=== PATIENT | female | born 1995 | race Caucasian/White ===

== ENCOUNTER 2016-12-07 14:56 | Emergency (ER) | payer BC ==
[~2016-12-07] VITALS: Ht 171.5 cm; Wt 59.2 kg
[~2016-12-07 14:56] MED LIST: CALC500C3 PO; MYCO500T4 PO; PRED-301 PO
[2016-12-07 14:59] VITALS: TEMP 37; Ht 171.5 cm; Wt 59.2 kg
[2016-12-07] MEDS ORDERED: LIDOCAINE/EPINEPHRINE 1% 20 ML VIAL INFIL ONE (15:15)
[2016-12-07] MEDS ORDERED: HYDR200T5 PO (15:26)
--- NOTE | 2016-12-07 15:54 | DIAGNOSTIC IMAGING REPORT ---
RIGHT FOOT MIN 3 VIEWS ROUTINE HISTORY: 21 years-old Female laceration lateral foot, eval glass FB Right COMPARISON: None available TECHNIQUE: 3 views of the right foot FINDINGS: No acute fracture, dislocation, or significant degenerative changes. No radio-opaque foreign body. IMPRESSION: No acute bony abnormality. No radio-opaque foreign body The above report was generated using voice recognition software. It may contain grammatical, syntax or spelling errors. Electronically signed by: Porfirio Caballero M.D. 12/07/2016 3:52 PM Dictated Date/Time: 12/07/2016 3:48 PM
--- NOTE | 2016-12-07 15:55 | EMERGENCY ROOM VISIT NOTE ---
ED Visit Note First contact with patient: 15:03 CHIEF COMPLAINT: Foot laceration HISTORY OF PRESENT ILLNESS: This 21-year-old female patient presents to the emergency department right foot this morning at 6 AM. She states she dropped a drinking glass on the floor, it shattered and a piece of glass cut her right foot. She states she covered with a Band-Aid and went back to sleep, however when she got up later she noticed pain and some swelling in the area and is worried about a piece of glass in the foot. The bleeding has stopped. Denies weakness or numbness of the foot or toes, and has been able to ambulate. The patient rates the pain as aching and 2/10. The patient denies any other injuries. The patient's Tetanus shot is up to date. REVIEW OF SYSTEMS: A 6 system review of systems was completed with positives and pertinent negatives listed in the HPI. ALLERGIES: No known allergies MEDICATIONS: Reviewed in chart PMH: Lupus SOCIAL HISTORY: [employer] student. Denies tobacco, alcohol, recreational drug use. PHYSICAL EXAM: Vital Signs: Reviewed Nurse's notes, vital signs stable. GENERAL : Pleasant and cooperative, in no acute distress, well-developed, well- nourished. SKIN: There is a 0.5 cm long laceration on the dorsolateral aspect of the right foot. The edges gape apart with traction. There is no foreign material noted in the wound and it looks clean. There is no active bleeding. No deep structures such as tendons, bones, or significant blood vessels are seen in the base of the wound. Normal strength and movement of the fingers and wrist. Capillary refill less than 2 seconds. Normal sensation to light and sharp touch. EMERGENCY DEPARTMENT COURSE: I examined the patient. An x-ray of the right foot was performed, reviewed by myself and radiology, which reveals no evidence of retained foreign body. Verbal consent was obtained to perform the procedure. Using sterile technique the wound was cleansed with Betadine. The area was sterilely draped. 2 ml of 1% buffered lidocaine with epinephrine was used to anesthetize the laceration on the foot. Once the patient was anesthetized, the wound was copiously irrigated under pressure with sterile saline. The wound was carefully explored and no foreign body was noted, the wound was as described above. The laceration was repaired using Steri-Strips with the wound edges being well approximated. The patient tolerated the procedure well. Hemostasis was achieved. The patient was discharged home in good condition and ambulatory. Current/Historical Medications Scheduled Hydroxychloroquine Sulfate (Plaquenil), 200 MG PO BID Mycophenolate Mofetil (Cellcept), 1,000 MG PO BID Prednisone (Prednisone), 5 MG PO DAILY Allergies Coded Allergies: No Known Allergies (Unverified , 01/29/16) Vital Signs Date Time Temp Pulse Resp B/P (MAP) Pulse Ox O2 Delivery O2 Flow Rate FiO2 12/07/16 14:59 37.0 85 18 106/72 97 Room Air Departure Information Impression Primary Impression: Laceration of right foot excluding toes without complication Dispostion Home / Self-Care Condition GOOD Referrals Nelson Narayan M.D. (PCP) Patient Instructions ED Laceration Foot, [facility] Additional Instructions You were evaluated in the emergency department today for foot laceration. No evidence of foreign body was found on x-ray or examination of your wound. Keep the wound clean and dry. It is okay to shower and let water run over the wound, but do not immerse the foot in water until the wound is fully healed. You may apply ice and elevate the foot to help reduce swelling and pain. Ibuprofen 600 mg and Tylenol 1000 mg every 8 hour as needed for pain. Monitor closely for any signs of infection (increasing pain, redness, swelling, drainage, streaking up the foot, or fevers/chills). You should be evaluated immediately for any signs of infection. Keep covered when in sun until sutures removed then SPF 50 or higher for one year. Vitamin E oil if desired two weeks after suture removal for reduction of scar. School Instructions Return To School: 1 day Additional School Instructions: Ana Snowden was evaluated in the emergency department today on 12/07/2016. Problem Qualifiers Primary Impression: Laceration of right foot excluding toes without complication Encounter type: initial encounter Qualified Codes: S91.311A - Laceration without foreign body, right foot, initial encounter
[2016-12-07 16:33] VITALS: BP 108/73; PULSE 80; O2SAT 99
== END 2016-12-07 16:40 | disposition home or self-care (01) ==
LOC: C.EDB 14:57 → C.EDD 16:40
DX: S91.311A Laceration without foreign body, right foot, initial encounter (principal); W25.XXXA Contact with sharp glass, initial encounter

== ENCOUNTER 2018-08-14 22:10 | Inpatient (IN) ==
[2018-08-14] MEDS ORDERED: SODIUM CHLORIDE 0.9% 1000ML 2,000 ML IV ONE (22:52)
[2018-08-14] MEDS ORDERED: ACETAMINOPHEN 1,000 MG/100 ML VIAL IV STA (22:52)
[2018-08-14] MEDS ORDERED: KETOROLAC TROMETHAMINE 15 MG/ML VIAL IV STA (22:52)
[2018-08-15 00:19] LABS: Appearance Urine Clear (Clear); Color Urine Orange
[2018-08-15 00:22] LABS: Specific Gravity Urine > 1.060 (1.000-1.060)
[2018-08-15 00:23] LABS: Protein Urine Negative (Negative)
[2018-08-15 00:29] LABS: RBC Urine 0-4 /hpf (0-4)
[2018-08-15 00:30] LABS: Bacteria Urine 1+ (Negative); WBC Urine >30 /hpf (0-5)
[2018-08-15 00:34] LABS: Albumin Level 3.2 gm/dl (3.4-5.0); BUN Creatinine Ratio 14.9 (10-20); Calcium 8.2 mg/dl (8.5-10.1); Creatinine Clr Calc Pharmacy 96.1 ml/min; Est GFR (African American) 111.1; Est GFR (Non-African American) 95.9; Magnesium 1.7 mg/dl (1.8-2.4)
[2018-08-15 00:40] LABS: Albumin Globulin Ratio 0.9 (0.9-2); Bilirubin,Total 0.6 mg/dl (0.2-1); Globulin 3.7 gm/dl (2.5-4.0); Phosphorus 3.1 mg/dl (2.5-4.9); Total Protein 6.9 gm/dl (6.4-8.2)
[2018-08-15 01:02] LABS: Procalcitonin 0.46 ng/ml (0-0.5)
[2018-08-15 01:10] LABS: Lyme Ab IgG w/WB Rflx Negative (Negative); Lyme Ab IgM w/WB Rflx Negative (Negative)
--- NOTE | 2018-08-15 01:59 | Emergency Department Note ---
Entered by Rick Wallis acting as a scribe for Philipp Spangler MD History of Present Illness General Chief complaint: Flank Pain Stated complaint: SHAKING,SIDE PAIN,NECK PAIN,HEADACHE Time Seen by Provider: 08/14/18 22:29 Source: patient History of Present Illness Onset (ago): day(s) 4 Location: abdomen (flank pain) Radiation: other (rest of body) Pain Consistency: + other (worsening) Maximum Pain Intensity: 10 Associated symptoms: + denies other symptoms (vaginal lesions, vaginal itching, and vaginal discharge), + cough, + fever/chills, + headaches, + nausea/vomiting (positive nausea, negative vomiting) and + other (congestion) The patient is a 23 year old F who presents to the Emergency Room with complaints of worsening flank pain starting 4 days ago. The patient states that she was here at the ED earlier today for her flank pain and had testing done. She notes that the testing reveled that she has a potential infection. She adds that her pain radiates to the rest of her body. She states that 1 week ago she had a UTI. She adds that she was put on Bactrim for her UTI. She notes that when she was on the Bactrim, she started to experience a fever. She states that she is currently experiencing a fever, chills, headache, congestion, coughing, and nausea. She denies experiencing vomiting, vaginal lesions, vaginal itching, and vaginal discharge. She notes that she has a history of lupus and is immunosuppressed. She adds that she saw her talent acquisition operations manager recently. She states that there is no concern for an STD. She adds that she has a copper IUD in place. She notes that she did not use alcohol today but adds that she drank a lot this week and last week. She denies any drug use. Home Medications Home Medications Medication Instructions Recorded Confirmed Type hydroxychloroquine [Plaquenil] 200 mg PO DAILY #0 tab 12/07/16 08/14/18 History calcium carbonate [Calcium 500] 500 mg PO DAILY 01/27/18 08/14/18 History multivitamin with minerals 2 tab PO BID 04/28/18 08/14/18 History [Hair,Skin and Nails] mycophenolate mofetil [CellCept] 500 mg PO BID 04/28/18 08/14/18 History levofloxacin [Levaquin] 500 mg PO DAILY 7 Days #7 tab 08/14/18 08/14/18 Rx phenazopyridine [Pyridium] 200 mg PO DAILY PRN 08/14/18 08/14/18 History sulfamethoxazole-trimethoprim 1 tab PO BID 08/14/18 08/14/18 History [Bactrim DS] Allergies Allergy/AdvReac Type Severity Reaction Status Date / Time No Known Allergies Allergy Verified 08/14/18 23:19 Past Med/Surg History Medical History History of meningitis (Chronic) Lupus (Chronic) Surgical History No significant past surgical history Family History Other No pertinent family history Social History Preferred Language: Korean Communication Ability: Effective Keg Raiser Required: No Beliefs That Will Affect Care: None Current Living Situation: Family current occupational status: student Other Information That Helps Us Care for You: No Feels Safe at Home: Yes Safety Concerns: Feels Safe At This Time Smoking Status: Never smoker Hx Alcohol Use: Yes Alcohol type: hard liquor Hx Substance Use: No Review of Systems See HPI for pertinent positives & negatives. and A total of 10 systems reviewed and were otherwise negative Physical Exam Vital Signs Vital Signs - 24 hr 08/14/18 22:21 08/15/18 01:32 08/15/18 04:01 Temperature 37.7 C H Temperature Source Oral Sepsis Recent Fever Within 48 Hours Yes Sepsis New/Unexplained Change in Mental Status No Sepsis Action Taken by Nursing No Action Required Pulse Rate 105 H Pulse Rate [Finger] 102 H 98 H Respiratory Rate 16 18 18 Respiratory Effort / Characteristics Non-Labored Spontaneous Respiratory Depth Normal Respiratory Pattern Regular Blood Pressure 81/52 L Blood Pressure [Right Arm] 88/38 L 91/51 L Blood Pressure Mean 61 Blood Pressure Mean [Right Arm] 54 64 Pulse Oximetry 94 97 98 Oxygen Delivery Method Room Air Room Air Room Air 08/15/18 04:23 Temperature 37.0 C Temperature Source Oral Sepsis Recent Fever Within 48 Hours Sepsis New/Unexplained Change in Mental Status Sepsis Action Taken by Nursing Pulse Rate Pulse Rate [Finger] 100 H Respiratory Rate 16 Respiratory Effort / Characteristics Non-Labored Respiratory Depth Normal Respiratory Pattern Regular Blood Pressure Blood Pressure [Right Arm] 100/42 L Blood Pressure Mean Blood Pressure Mean [Right Arm] 61 Pulse Oximetry 96 Oxygen Delivery Method Room Air GENERAL: Awake, alert, fatigued-appearing, uncomfortable HENT: Normocephalic, atraumatic. Oropharynx with dry mucous membranes and otherwise unremarkable. EYES: Normal conjunctiva. Sclera non-icteric. NECK: Supple. No nuchal rigidity. FROM. No JVD. RESPIRATORY: CTA bilaterally. CARDIAC: Tachycardic rate, regular rhythm. Extremities warm and well perfused. Pulses equal. ABDOMEN: Soft, non-distended. Mild suprapubic discomfort without discrete tenderness. No rebound or guarding. No masses. RECTAL: Deferred. MUSCULOSKELETAL: Chest examination reveals no tenderness. The back is symmetrical on inspection without obvious abnormality. There is no CVA tenderness to palpation. No joint edema. LOWER EXTREMITIES: Calves are equal size bilaterally and non-tender. No edema. No discoloration. NEURO: Normal sensorium. No sensory or motor deficits noted. SKIN: No rash or jaundice noted. Course 2235: The patient was evaluated in room C2. A complete history and physical exam was performed. 0108: I re-checked the patient and updated her on her test results. 0135: I reviewed the patient's case with Dr. Claros [facility]. He will evaluate the patient for further management. Consultations Consultation #1: I reviewed the patient's case with [facility]. He will evaluate the patient for further management. Time: 01:35 Administered Medications Discontinued Medications Acetaminophen (Ofirmev) 1,000 mg in 100 mls @ 400 mls/hr IV NOW STA Stop: 08/14/18 23:06 Last Infusion: 08/15/18 02:26 Dose: 0 mls/hr Documented by: [id number] Admin: 08/15/18 00:17 Dose: 400 mls/hr Documented by: [id number] Sodium Chloride (Nss 1000ml) 2,000 mls @ 999 mls/hr IV .Q2H1M ONE Stop: 08/15/18 00:52 Last Infusion: 08/15/18 03:50 Dose: 0 mls/hr Documented by: [id number] Admin: 08/15/18 00:17 Dose: 999 mls/hr Documented by: [id number] Ketorolac Tromethamine (Toradol) 15 mg IV NOW STA Stop: 08/14/18 22:53 Last Admin: 08/15/18 00:16 Dose: 15 mg Documented by: [id number] Medical Decision Making Differential Diagnosis Differential diagnosis includes: viral syndrome, otitis, pharyngitis, pneumonia, influenza, meningitis, urinary tract infection, sepsis, bacteremia, as well as others were entertained. Medical Records Attestation: I reviewed the patient's medical records. Home Medications Current Medication List: was personally reviewed by me Laboratory Data Attestation: I reviewed the patient's lab results. Result diagrams: 08/15/18 00:00 Lab Results 08/14/18 08/15/18 08/15/18 Range/Units 23:42 00:00 00:00 Sodium 136 (136-145) mmol/L Potassium 4.0 (3.5-5.1) mmol/L Chloride 107 (98-107) mmol/L Carbon Dioxide 25 (21-32) mmol/L Anion Gap 4.0 (3-11) BUN 13 D (7-18) mg/dl Creatinine 0.86 (0.6-1.2) mg/dl Est Cr Clr Drug Dosing 96.1 ml/min Est GFR ( Amer) 111.1 Est GFR (Non-Af Amer) 95.9 BUN/Creatinine Ratio 14.9 (10-20) Glucose 95 (70-99) mg/dl Lactate 1.3 (0.4-2.0) mmol/L Calcium 8.2 L (8.5-10.1) mg/dl Phosphorus 3.1 (2.5-4.9) mg/dl Magnesium 1.7 L (1.8-2.4) mg/dl Total Bilirubin 0.6 (0.2-1) mg/dl AST 23 (15-37) U/L ALT 18 (12-78) U/L Alkaline Phosphatase 70 (45-117) U/L Total Protein 6.9 (6.4-8.2) gm/dl Albumin 3.2 L (3.4-5.0) gm/dl Globulin 3.7 (2.5-4.0) gm/dl Albumin/Globulin Ratio 0.9 (0.9-2) Lipase 104 (73-393) U/L Procalcitonin (0-0.5) ng/ml Urine Color [place] Urine Appearance Clear (Clear) Urine pH (4.5-7.5) Ur Specific [place] > 1.060 H (1.000-1.060) Urine Protein Negative (Negative) Urine Glucose (UA) (Negative) Urine Ketones (Negative) Urine Blood (Negative) Urine Nitrite (Negative) Urine Bilirubin (Negative) Urine Urobilinogen (Negative) Ur Leukocyte Esterase (Negative) Urine RBC 0-4 (0-4) /hpf Urine WBC >30 H (0-5) /hpf Ur Epithelial Cells 5-10 H (0-5) /lpf Urine Bacteria 1+ H (Negative) Lyme Disease IgG Ab (Negative) Lyme Disease IgM Ab (Negative) 08/15/18 Range/Units 00:00 Sodium (136-145) mmol/L Potassium (3.5-5.1) mmol/L Chloride (98-107) mmol/L Carbon Dioxide (21-32) mmol/L Anion Gap (3-11) BUN (7-18) mg/dl Creatinine (0.6-1.2) mg/dl Est Cr Clr Drug Dosing ml/min Est GFR ( Amer) Est GFR (Non-Af Amer) BUN/Creatinine Ratio (10-20) Glucose (70-99) mg/dl Lactate (0.4-2.0) mmol/L Calcium (8.5-10.1) mg/dl Phosphorus (2.5-4.9) mg/dl Magnesium (1.8-2.4) mg/dl Total Bilirubin (0.2-1) mg/dl AST (15-37) U/L ALT (12-78) U/L Alkaline Phosphatase (45-117) U/L Total Protein (6.4-8.2) gm/dl Albumin (3.4-5.0) gm/dl Globulin (2.5-4.0) gm/dl Albumin/Globulin Ratio (0.9-2) Lipase (73-393) U/L Procalcitonin 0.46 (0-0.5) ng/ml Urine Color Urine Appearance (Clear) Urine pH (4.5-7.5) Ur Specific [place] (1.000-1.060) Urine Protein (Negative) Urine Glucose (UA) (Negative) Urine Ketones (Negative) Urine Blood (Negative) Urine Nitrite (Negative) Urine Bilirubin (Negative) Urine Urobilinogen (Negative) Ur Leukocyte Esterase (Negative) Urine RBC (0-4) /hpf Urine WBC (0-5) /hpf Ur Epithelial Cells (0-5) /lpf Urine Bacteria (Negative) Lyme Disease IgG Ab Negative (Negative) Lyme Disease IgM Ab Negative (Negative) ECG Data Attestation: I personally reviewed and interpreted this ECG as follows: Indication: abdominal pain Rate (beats per minute): 92 Rhythm: normal sinus Findings: + other (normal axis); no acute ischemic change Blood Pressure Blood Pressure Findings: Low blood pressure Blood Pressure Disposition: further management by hospitalist NATALEE Banks The patient is a pleasant 23-year-old woman with a past medical history of lupus on CellCept and Plaquenil who presents emergency department after being discharged 4 hours prior after being diagnosed with UTI/pyelonephritis although with unremarkable CT of the abdomen pelvis per hpi. The patient was seen in the emergency department earlier today and had a WBC of 11 and was treated with c eftriaxone and ciprofloxacin. He was then provided with a prescription for Levaquin. On arrival patient is uncomfortable but no acute distress, temperature 37.7, heart rate in the 100s and blood pressure 80s/30s. The patient appears clinically dry. She has mild suprapubic discomfort without disc rete tenderness. Chemistry unremarkable without acidosis. LFTs unremarkable. Lactate and procalcitonin within normal limits making sepsis less likely. 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 Additionally patient refused EKG because she reports that it gives her chest pain. Additionally she refused to be on the monitor. Given the patient is immunosuppressed with persistent symptoms that caused to return to the emergency department in less than 5 hours it is reasonable to admit the patient for further management. I did discuss this with the patient and her mother at the bedside and while ultimately agreeable, the patient's mother did express that she wanted to know exactly what "testing would be done if she were to come into the hospital" because she feels that if she "only is going to be observed" she would prefer to go home with the patient to see her doctors in [place] hometown. I did explain to the patient and her mother that is difficult to foresee exactly what type of testing will be performed and the more important part of her admission would be to observe her symptoms and continue to provide supportive care with IV fluid hydration and antibiotics. Case was discussed with Dr. Claros, [facility] hospitalist, who will evaluate the patient for admission Impression & Plan Pyelonephritis Discharge Plan Visit Data Chief Complaint: Flank Pain Stated Complaint: SHAKING,SIDE PAIN,NECK PAIN,HEADACHE ED Provider: Philipp Spangler Discharge Problem: Pyelonephritis Patient Disposition: Admitted As Inpatient Discharge Instructions Interventions: ED Discharge Assessment Last Done: 08/15/18 05:02 The scribe's documentation has been prepared under my direction and personally reviewed by me in its entirety. I confirm that the note above accurately reflects all work, treatment, procedures, and medical decision making performed by me.
[2018-08-15] MEDS ORDERED: ACETAMINOPHEN 325 MG TAB PO PRN (05:23)
[2018-08-15] MEDS ORDERED: ONDANSETRON INJ 2 MG/ML 2 ML VIAL IV PRN (05:23)
[2018-08-15] MEDS: SODIUM CHLORIDE 0.9% 1000ML 1,000 ML IV SCH ×3 (05:52→21:47)
[2018-08-15] MEDS ORDERED: MAGNESIUM SULFATE / D5W 1 GM/100 ML BAG IV ONE (06:46)
[2018-08-15] MEDS ORDERED: cefTRIAXone SODIUM 1,000 MG in DEXTROSE 5% 50 ML IV SCH (07:00)
[2018-08-15] MEDS: CALCIUM CARBONATE 1250MG TAB PO SCH ×2 (07:30→08:55)
[2018-08-15] MEDS: CEROVITE ADV FORMULA TAB PO SCH ×3 (07:30→20:12)
--- NOTE | 2018-08-15 08:14 | History and Physical Report ---
DATE OF ADMISSION: 08/15/2018 CHIEF COMPLAINT: Fever, not feeling well, flank pain. HISTORY OF PRESENT ILLNESS: This is a 23-year-old female with past medical history significant for Raynaud's syndrome, SLE, who recently was diagnosed with UTI at [facility] and treated with 3 days of Bactrim. Then she did have joint pain, so she spoke with her prover who prescribed a Medrol Dosepak for 6 days, which she completed, but again she also had cold symptoms when she had UTI and the cold symptoms never went away and she went to [facility] yesterday morning and was referred to ED. [facility] performed strep swab and flu swab and they were both negative. She complained of right flank pain in the ER yesterday afternoon, white count was 11. All chemistries were fine. Lactic acid was 1.5. UA was negative. She was given Rocephin and Levaquin. Chest x-ray was unremarkable and CT of abdomen and pelvis with contrast was also unremarkable except for some constipation, so she was discharged on p.o. Levaquin as per patient wishes as she was graduating from [employer].. After graduation, around 8 o'clock, she started not feeling well and complained of flank pain and came back to the ER. She has lupus and is on immunosupressant medications. Again the chemistries were fine and lactic acid was 1.3. Urinalysis negative,.Blood pressure was on the lower side, received IV fluids, and received Tylenol and also Toradol, and we are called for admission for observation in the hospital. The patient says now she is feeling better. She has history of meningococcal bacteremia in the past. She complains of mild headache and mild neck pain but no neck stiffness. No chest pain, no shortness of breath, currently no cough, no nausea, no abdominal pain. Normal bowel and bladder movements. No burning micturition, no hematuria. Her flank pain is improved. No swelling in the legs. No rash seen. Currently resting comfortably. She is feeling better. Mother in the room and she is asking to check for SLE studies, likely ESR, CRP, C3, C4 levels and she is questioning holding the CellCept while she is in the hospital. ALLERGIES: No known drug allergies. PAST MEDICAL HISTORY: As mentioned above. PAST SURGICAL HISTORY: None. MEDICATIONS: The patient is on multivitamins with minerals 1 tablet daily, Plaquenil 400 mg p.o. b.i.d., CellCept 1000 mg p.o. b.i.d. FAMILY HISTORY: Significant for mother has ITP and stroke. Paternal grandmother had MS . SOCIAL HISTORY: Single. No smoking; alcohol rarely. No drug use. REVIEW OF SYMPTOMS: As per HPI. Rest of review of systems is negative. PHYSICAL EXAMINATION: GENERAL: The patient is of moderate build, not in acute distress. VITAL SIGNS: Temperature 37.7, pulse 102, respiratory rate 18, blood pressure 88/38, oxygen 97% on room air. HEENT: Pupils equal, round, reactive to light. Atraumatic. NECK: No neck masses. Supple. CARDIOVASCULAR: S1, S2 heard. Regular rate and rhythm, no murmur, no gallop. RESPIRATORY SYSTEM: Normal effort. No accessory muscle use. No wheezing, no crackles. ABDOMEN: Soft, bowel sounds present. Nontender. No distention. CENTRAL NERVOUS SYSTEM: Nonfocal. EXTREMITIES: No edema, no erythema. LABORATORIES: Sodium 136, potassium 4, chloride 107, bicarbonate 25, BUN 13, creatinine 0.8, serum glucose 95. Lactate 1.6, calcium 8.2, phosphorus 3.1, magnesium 1.7, total bilirubin 0.6, AST 23, ALT 18, alkaline phosphatase 70, lipase 104. Procalcitonin 0.4. Urinalysis and lyme screen negative. ASSESSMENT AND PLAN: This is a 23-year-old female who was recently treated for urinary tract infection and connective tissue disease flare up, treated with Medrol Dosepak, presents with again flank pain and fever, presented to the ER in afternoon and discharged after given Rocephin and Levaquin as she had a graduation, and after 4 or 5 hours later after finishing the graduation, she came back again with not feeling well and has temp spike, blood pressure on the lower side, but lactic acid is normal, not acidotic. We will observe in the hospital with IV Rocephin, IV fluids, repeat labs, check for ESR and CRP and also consider discussing with rheumatology for any connective tissue disease flare. We will also monitor for any adrenal insufficiency as the patient recently had steroids. Will follow the cultures jesus alberto earlier. 2., history of systemic lupus erythematosus and Raynaud's syndrome. Continue her Plaquenil and CellCept unless okay to stop by prover. 3 Deep venous thrombosis prophylaxis, SCDs. DISPOSITION: Close monitoring in the Med/Surg tele. Level 1 full code. MTDD
[2018-08-15 08:42] LABS: Hematocrit (blood only) 33.8 % (37-47); Mean Corpuscular Hgb Conc 32.5 g/dL (32-36); Mean Corpuscular Volume 89.2 fL (80-100); Mean Platelet Volume 9.4 fL (7.4-10.4); Platelet Count 244 K/uL (130-400); RDW Coefficient of Variation 13.5 % (11.5-14.5); RDW Standard Deviation 44.6 fL (36.4-46.3); Red Blood Count 3.79 M/uL (4.2-5.4); White Blood Count 12.28 K/uL (4.8-10.8)
[2018-08-15 08:43] LABS: Basophils # (auto) 0.01 K/uL (0-0.2); Basophils % (auto) 0.1 %; Eosinophils # (auto) 0.06 K/uL (0-0.5); Eosinophils % (auto) 0.5 %; Hematocrit (blood only) 34.4 % (37-47); Hemoglobin 11.1 g/dL (12.0-16.0); Immature Granulocytes # (auto) 0.04 K/uL (0.00-0.02); Immature Granulocytes % (auto) 0.3 %; Lymphocytes # (auto) 0.51 K/uL (1.2-3.4); Lymphocytes % (auto) 4.1 %; Mean Corpuscular Hgb Conc 32.3 g/dL (32-36); Mean Corpuscular Volume 89.4 fL (80-100); Mean Platelet Volume 9.4 fL (7.4-10.4); Monocytes # (auto) 0.31 K/uL (0.11-0.59); Monocytes % (auto) 2.5 %; Neutrophils # (auto) 11.53 K/uL (1.4-6.5); Neutrophils % (auto) 92.5 %; Platelet Count 248 K/uL (130-400); RDW Coefficient of Variation 13.6 % (11.5-14.5); RDW Standard Deviation 44.4 fL (36.4-46.3); Red Blood Count 3.85 M/uL (4.2-5.4); White Blood Count 12.46 K/uL (4.8-10.8)
[2018-08-15] MEDS ORDERED: VANCOMYCIN CONSULT ACTIVE PRN (08:55)
[2018-08-15] MEDS ORDERED: MYCOPHENOLATE MOFETIL 250 MG CAP PO SCH (09:00)
[2018-08-15] MEDS ORDERED: HYDROXYCHLOROQUINE SULFATE 200 MG TAB PO SCH (09:00)
[2018-08-15 09:09] LABS: Basophils # (auto) 0.01 K/uL (0-0.2); Basophils % (auto) 0.1 %; Eosinophils # (auto) 0.05 K/uL (0-0.5); Eosinophils % (auto) 0.4 %; Immature Granulocytes # (auto) 0.03 K/uL (0.00-0.02); Immature Granulocytes % (auto) 0.2 %; Lymphocytes # (auto) 0.57 K/uL (1.2-3.4); Lymphocytes % (auto) 4.6 %; Monocytes # (auto) 0.25 K/uL (0.11-0.59); Neutrophils # (auto) 11.37 K/uL (1.4-6.5); Neutrophils % (auto) 92.7 %
--- NOTE | 2018-08-15 09:15 | Hospitalist Progress Note ---
Date of Service August 15, 2018 Assessment & Plan (1) Fever: Fever: urinary tract infection, possible meningitis, rule out bacteremia -max temperature to date as 39.9 celsius which is 103.8 F while on ceftriaxone in the hospital on 08/15/18 -unclear at this time the source of fever -patient had recently been treated as outpatient for urinary tract infection: previous use of bactrim for 3 days but then went to ER for right flank pain -08/14/18 CT abdomen/pelvis does not show acute pyelonephritis, Bilateral renal calculi measure up to 5 mm but no ureteral calculi and no hydronephrosis or hydroureter, and patient was discharged from ED with Levaquin but returned the same day for persistent symptoms and fever and also reports associated neck pain and photophobia -patient is immunosuppressed by hydroxychloroquine (Plaquenil) and mycophenolate (Cellcept) because of Systemic lupus erythematosus and Raynaud's syndrome - will hold immunosuppressants for now -patient also had history of suspected meningitis infection in the past but patient never had lumbar puncture before -patient have agreed to lumbar puncture by ICU Dr. Schmidt on 08/15/18 and then will be on increased ceftriaxone 2 gram IV q 12 hours , ampicillin 2 gram q4 hours, and vancomycin -place on droplet precautions in case of meningitis -will follow blood cultures, and urine cultures -recently sexually active with male partner and condom broke: will send HIV test as requested by the patient, will send EBV, and Neisseria and Gonorrhea test, and test -will ask for infectious disease consultation Bilateral renal calculi measure up to 5 mm but no ureteral calculi and no hydronephrosis or hydroureter -observation Systemic lupus erythematosus and Raynaud's syndrome -hold hydroxychloroquine (Plaquenil) and mycophenolate (Cellcept) for now - check for SLE studies: ESR, CRP, C3, C4 levels Deep venous thrombosis prophylaxis, SCDs Full Code Mother: [phone] Subjective Patient at bedside with her mother. Patient noted to have high fevers as high as 39.9 celsius. Patient's mother at the bedside. Patient permitted medical questions including about sexual history while mother in the room. Patient reports that she was sexually active recently and condom broke. Patient reports that the sexual partner was sick recently. Patient requests HIV testing. She denies unusual discharges from orifices. Patient reports that recent history of right flank pain, and more recently with photophobia and neck pain. Patient reports with recent college celebrations she have been sharing drinks with other people. Patient's mother corroborates history of suspected meningitis infection in the past but patient never had lumbar puncture before. Patient allows for lumbar puncture by ICU Dr. Schmidt no vomiting, no abdomen pain, no chest pain, no shortness of breath. denies r ashes. general malaise. patient is anxious because of illness Physical Exam Constitutional: + ill appearing Eyes: PERRL, conjunctivae normal, anicteric sclerae EOM intact bilaterally Neck: trachea midline, no thyromegaly (no neck rigidity) normal visual inspection Respiratory: normal respiratory effort, lungs clear to auscultation Cardiovascular: Rate/Rhythm: + tachycardic Gastrointestinal (Abdomen): normal bowel sounds, soft, nontender, no hepatosplenomegaly Musculoskeletal: no cyanosis or clubbing, extremities motor strength 5/5 Head/Neck/Chest: normocephalic and head atraumatic Neurologic: PERRL, EOMI, accommodation nl, no face palsy, no dysarthria CN 's II-XI intact bilaterally Psychiatric: A+Ox3, euthymic affect Results & Data Vital Signs (Past 12 Hours) Vital Signs Temp Pulse Pulse Resp BP BP BP 08/15/18 08:08 39.2 C H 114 H 21 97/59 L 08/15/18 05:42 37.5 C 102 H 18 101/65 08/15/18 04:23 37.0 C 100 H 16 100/42 L 08/15/18 04:01 98 H 18 91/51 L 08/15/18 01:32 102 H 18 88/38 L 08/14/18 22:21 37.7 C H 105 H 16 81/52 L Pulse Ox 08/15/18 08:08 91 08/15/18 05:42 99 08/15/18 04:23 96 08/15/18 04:01 98 08/15/18 01:32 97 08/14/18 22:21 94
[2018-08-15 09:17] LABS: Alanine Aminotransferase 15 U/L (12-78); Albumin Level 2.5 gm/dl (3.4-5.0); Aspartate Aminotransferase 19 U/L (15-37); BUN Creatinine Ratio 16.6 (10-20); Blood Urea Nitrogen 11 mg/dl (7-18); Calcium 7.7 mg/dl (8.5-10.1); Carbon Dioxide 22 mmol/L (21-32); Chloride 114 mmol/L (98-107); Creatinine Clr Calc Pharmacy 125.2 ml/min; Est GFR (African American) 145.3; Est GFR (Non-African American) 125.4; Glucose 124 mg/dl (70-99); Magnesium 1.9 mg/dl (1.8-2.4); Potassium 3.6 mmol/L (3.5-5.1); Sodium 141 mmol/L (136-145)
[2018-08-15 09:20] LABS: Alkaline Phosphatase 55 U/L (45-117); Bilirubin Direct < 0.1 mg/dl (0-0.2); Bilirubin,Total 0.2 mg/dl (0.2-1); Total Protein 5.9 gm/dl (6.4-8.2)
[2018-08-15] MEDS ORDERED: VANCOMYCIN HCL 1,500 MG in SODIUM CHLORIDE 0.9% 500 ML IV ONE (09:30)
[2018-08-15] MEDS ORDERED: cefTRIAXone SODIUM 1,000 MG in DEXTROSE 5% 50 ML IV ONE (09:30)
--- NOTE | 2018-08-15 10:01 | Pharmacy Report ---
Pharmacy Abx Initial Consult - Date of Service August 15, 2018 - Pharmacy Dosing Scope Date of Consult: 08/15/18 Consultation requested by: Dr. Patrick Pharmacy is consulted to initiate Vancomycin IV/PO dosing therapy, order appropriate labs and adjust drug dose/frequency. - Subjective The patient is a 23 year old F admitted on 08/15/18 03:15. - Objective Height: 5 ft 6 in Weight: 62.7 kg Vital Signs (Past 12hrs): Vital Signs Temp Pulse Pulse Resp BP BP BP 08/15/18 08:08 39.2 C H 114 H 21 97/59 L 08/15/18 05:42 37.5 C 102 H 18 101/65 08/15/18 04:23 37.0 C 100 H 16 100/42 L 08/15/18 04:01 98 H 18 91/51 L 08/15/18 01:32 102 H 18 88/38 L 08/14/18 22:21 37.7 C H 105 H 16 81/52 L Pulse Ox 08/15/18 08:08 91 08/15/18 05:42 99 08/15/18 04:23 96 08/15/18 04:01 98 08/15/18 01:32 97 08/14/18 22:21 94 Lab Results (24hrs): Laboratory Tests (24 Hours) 08/15/18 08/15/18 08/15/18 07:52 07:52 07:52 WBC 12.46 H Neut # (Auto) 11.53 H ESR 17 Creatinine 0.66 Est Cr Clr Drug Dosing 125.2 C-Reactive Protein 9.00 H Procalcitonin 08/15/18 08/15/18 08/15/18 07:52 00:00 00:00 WBC 12.28 H Neut # (Auto) 11.37 H ESR Creatinine 0.86 Est Cr Clr Drug Dosing 96.1 C-Reactive Protein Procalcitonin 0.46 - Risk Factors for Resistance * Immunocompromised (Takes CellCept and Plaquenil for Lupus and Raynaud's syndrome) * Antimicrobial use within the last 90 days [Bactrim x 3 days for UTI, Rocephin IV and Levaquin PO from [facility] ED] - Assessment & Plan Assessment 23 year old F presented to the ED with complaints of flank pain, fever, chills, cough, and congestion. The patient had previously visited [facility] last week where she was diagnosed with a UTI and given a rx for Bactrim. Strep and Flu swab at [facility] were negative. After 3 days her pain persisted, she developed a fever and joint pain. She returned to [facility] who referred her to the ED. Labs and imaging were negative, pt requested to be discharged so she could attend her graduation. She was given a dose of Rocephin IV, and discharged with PO Levaquin - unclear if she took any doses before returning to the ED about 8 hours later with worsening symptoms. She has a history of bacterial meningitis about 3 years ago, and reports that she has been frequently sharing drinks/cups with friends recently. LP to be done today. Immunosuppressants are currently being held. Plan Vancomycin for treatment of meningitis Vancomycin IV * Estimated PK Parameters: Vd 0.7 L/kg, [place] 0.108 hr-1, t1/2 ~6 hr * Loading dose: 1500 mg (24 mg/kg) * Maintenance dose: 1000 mg IV (16 mg/kg) every 8 hours * Goal trough level : 15 to 20 mcg/mL * Trough/Random level ordered for 08/16/18 before 1000 dose. Ceftriaxone (not a consult) * 2g IV every 12 hrs appropriate for indication Ampicillin (not a consult) * 2g IV every 4 hrs appropriate for indication Pharmacy will continue to follow and will adjust dose/frequency as necessary. Thank you.
--- NOTE | 2018-08-15 10:10 | Critical Care Consultation ---
Date of Consultation August 15, 2018 Assessment & Plan (1) Fever: discussed risks josh benefits of LP with patient and parents. agreeable will prceed with LP History of Present Illness Reason for Consultation: lumbar puncture Attending Physician: Shaw Partick MD History of Present Illness 23 y/o female with SLE presented with fevers and headache. consulted to perform LP Allergies Allergy/AdvReac Type Severity Reaction Status Date / Time No Known Allergies Allergy Verified 08/14/18 23:19 Home Medications Home Medications Medication Instructions Recorded Confirmed Type hydroxychloroquine [Plaquenil] 200 mg PO DAILY #0 tab 12/07/16 08/14/18 History calcium carbonate [Calcium 500] 500 mg PO DAILY 01/27/18 08/14/18 History multivitamin with minerals 2 tab PO BID 04/28/18 08/14/18 History [Hair,Skin and Nails] mycophenolate mofetil [CellCept] 500 mg PO BID 04/28/18 08/14/18 History levofloxacin [Levaquin] 500 mg PO DAILY 7 Days #7 tab 08/14/18 08/14/18 Rx phenazopyridine [Pyridium] 200 mg PO DAILY PRN 08/14/18 08/14/18 History sulfamethoxazole-trimethoprim 1 tab PO BID 08/14/18 08/14/18 History [Bactrim DS] Patient History Medical History History of meningitis (Chronic) Lupus (Chronic) Surgical History No significant past surgical history Family History Other No pertinent family history Social History Preferred Language: Slovak Communication Ability: Effective Sorting Cows Worker Required: No Beliefs That Will Affect Care: None Current Living Situation: Family current occupational status: student Other Information That Helps Us Care for You: No Feels Safe at Home: Yes Safety Concerns: Feels Safe At This Time Smoking Status: Never smoker Hx Alcohol Use: Yes Alcohol type: hard liquor Hx Substance Use: No Results & Data Vital Signs (Past 12 Hours) Vital Signs Temp Pulse Pulse Resp BP BP BP 08/15/18 10:01 37.5 C 08/15/18 08:08 39.2 C H 114 H 21 97/59 L 08/15/18 05:42 37.5 C 102 H 18 101/65 08/15/18 04:23 37.0 C 100 H 16 100/42 L 08/15/18 04:01 98 H 18 91/51 L 08/15/18 01:32 102 H 18 88/38 L 08/14/18 22:21 37.7 C H 105 H 16 81/52 L Pulse Ox 08/15/18 10:01 08/15/18 08:08 91 08/15/18 05:42 99 08/15/18 04:23 96 08/15/18 04:01 98 08/15/18 01:32 97 08/14/18 22:21 94
--- NOTE | 2018-08-15 10:13 | Procedure Note ---
Procedure Note Date of Service August 15, 2018 Note Lumbar puncture after informed consent pt positioned on her R side in position sterile precautions area cleaned with Betadine anesthetized with 1% lidocaine using landmarks 20 gauge needle introduced. and clear spinal fluid obtained opening pressure 22 mmH20 slightly bloody fluid in tubes 3-4 after catheter moved slightly likely traumatic. will do cell count on tube 2 await fluid studies Coding
[2018-08-15] MEDS: AMPICILLIN 2,000 MG in SODIUM CHLOR 0.9% AD-VAN 100 ML IV SCH ×4 (10:40→21:47)
[2018-08-15 10:44] LABS: Total Protein CSF 97.4 mg/dl (15-45)
[2018-08-15 11:00] LABS: Appearance CSF Clear; CSF Count Tube # 2; CSF Xanthrochromic No xanthochromia; Color CSF Colorless; Red Blood Cell CSF (A) 110 /uL (0-); Red Blood Cell CSF (B) 100 /uL (0-); White Blood Cell CSF (B) 400 /uL (0-5)
[2018-08-15 11:01] LABS: White Blood Cell CSF (A) 366 /uL (0-5)
[2018-08-15 11:16] LABS: Mononuclear WBC CSF 8.5 %; Polynuclear WBC CSF 91.5 %
[2018-08-15 11:22] LABS: Pregnancy Test, Serum Negative (Negative)
[2018-08-15] MEDS ORDERED: ACETAMINOPHEN 1,000 MG/100 ML VIAL IV PRN (12:09)
[2018-08-15] MEDS: OXYCODONE HCL IR 5 MG TAB (IMMEDIATE RELEASE) PO PRN ×2 (12:52→21:46)
[2018-08-15] MEDS: ACYCLOVIR SOD IV SCH ×2 (12:53→20:38)
[2018-08-15] MEDS: DEXTROSE 5% IV SCH ×2 (12:53→20:38)
--- NOTE | 2018-08-15 15:10 | Infectious Disease Consult ---
Date of Consultation August 15, 2018 Assessment & Plan (1) Meningitis: 23-year-old female with lupus now with fever, headache, new urinary complaints with CSF consistent with acute meningitis. Differential includes usual bacterial causes, suspect more likely viral such as echovirus but also HSV possible. Also wonder whether her underlying lupus may be contributing. For now, patient will continue on current broad-spectrum antibiotics and antiviral therapy pending final culture results, PCR studies and serologies. Discussed at length with patient's father. Will follow. History of Present Illness Reason for Consultation: High fever, concern for meningitis Attending Physician: Shaw Patrick MD History of Present Illness 23-year-old female with history of lupus, episode of meningococcemia several years ago, who was in usual state of health until approximately a week ago when she developed symptoms of urinary tract infection for which she was seen at local walk-in center and given Bactrim for possible UTI. Was also complaining of worsening joint pains, and rheumatology prescribed a Medrol Dosepak. She developed continuing urinary symptoms with flank pain, along with fever, headache, mild stiff neck, was seen in the emergency room, given ceftriaxone and sent home on Levaquin but symptoms worsened, patient return to the emergency room and admitted. Because of headache, patient underwent lumbar puncture and was found to have significant pleocytosis with white cells in the 300s, predominantly polys. Protein was elevated, glucose relatively normal. No other obvious significant travel or exposure history. Allergies Allergy/AdvReac Type Severity Reaction Status Date / Time No Known Allergies Allergy Verified 08/14/18 23:19 Home Medications Home Medications Medication Instructions Recorded Confirmed Type hydroxychloroquine [Plaquenil] 200 mg PO DAILY #0 tab 12/07/16 08/14/18 History calcium carbonate [Calcium 500] 500 mg PO DAILY 01/27/18 08/14/18 History multivitamin with minerals 2 tab PO BID 04/28/18 08/14/18 History [Hair,Skin and Nails] mycophenolate mofetil [CellCept] 500 mg PO BID 04/28/18 08/14/18 History levofloxacin [Levaquin] 500 mg PO DAILY 7 Days #7 tab 08/14/18 08/14/18 Rx phenazopyridine [Pyridium] 200 mg PO DAILY PRN 08/14/18 08/14/18 History sulfamethoxazole-trimethoprim 1 tab PO BID 08/14/18 08/14/18 History [Bactrim DS] Patient History Medical History History of meningitis (Chronic) Lupus (Chronic) Surgical History No significant past surgical history Family History Other No pertinent family history Social History Preferred Language: Wolof Communication Ability: Effective Attendant Coin Operated Laundry Required: No Beliefs That Will Affect Care: None Current Living Situation: Family current occupational status: student Other Information That Helps Us Care for You: No Feels Safe at Home: Yes Safety Concerns: Feels Safe At This Time Smoking Status: Never smoker Hx Alcohol Use: Yes Alcohol type: hard liquor Hx Substance Use: No Review of Systems Review of Systems: All systems reviewed & are unremarkable except as noted in HPI & below Physical Exam Constitutional: WD/WN, vitals as above + ill appearing and comfortable Eyes: PERRL, conjunctivae normal, anicteric sclerae ENMT: external ear and nose normal, oropharynx normal Neck: trachea midline, no thyromegaly neck nontender Respiratory: normal respiratory effort, lungs clear to auscultation normal percussion; does not use accessory muscles Cardiovascular: Rate/Rhythm: regular rate and regular rhythm Heart Sounds: normal S1 and normal S2; no gallop, no murmur and no cardiac rub Vessels: normal peripheral pulses; no JVD Gastrointestinal (Abdomen): normal bowel sounds, soft, nontender, no hepatosplenomegaly Musculoskeletal: no cyanosis or clubbing, extremities motor strength 5/5 Spine: thoracic spine normal to inspection and lumbar spine normal to inspection; no cervical spinal tenderness Skin: no rashes, warm and dry normal turgor; no lesions Neurologic: patellar DTR's 2+ bilat, sensation intact no focal motor deficits Psychiatric: A+Ox3, euthymic affect Orientation: cooperative Lymphatic: no cervical or axillary lymphadenopathy no inguinal lymphadenopathy Results & Data Vital Signs (Past 12 Hours) Vital Signs Temp Pulse Pulse Resp BP BP Pulse Ox 08/15/18 12:53 36.7 C 103 H 16 92/55 L 97 08/15/18 10:01 37.5 C 08/15/18 08:08 39.2 C H 114 H 21 97/59 L 91 08/15/18 08:00 111 H 08/15/18 05:42 37.5 C 102 H 18 101/65 99 08/15/18 04:23 37.0 C 100 H 16 100/42 L 96 08/15/18 04:01 98 H 18 91/51 L 98 Laboratory Results Short CBC 08/15/18 08/15/18 Range/Units 07:52 07:52 WBC 12.28 H 12.46 H (4.8-10.8) K/uL Hgb 11.0 L 11.1 L (12.0-16.0) g/dL Hct 33.8 L 34.4 L (37-47) % Plt Count 244 248 (130-400) K/uL BMP 08/15/18 08/15/18 00:00 07:52 Sodium 136 141 Potassium 4.0 3.6 Chloride 107 114 H Carbon Dioxide 25 22 BUN 13 D 11 Creatinine 0.86 0.66 Glucose 95 124 H Calcium 8.2 L 7.7 L Liver Function 08/15/18 08/15/18 Range/Units 00:00 07:52 Total Bilirubin 0.6 0.2 (0.2-1) mg/dl Direct Bilirubin < 0.1 (0-0.2) mg/dl AST 23 19 (15-37) U/L ALT 18 15 (12-78) U/L Alkaline Phosphatase 70 55 (45-117) U/L Albumin 3.2 L 2.5 L (3.4-5.0) gm/dl Urine 08/14/18 Range/Units 23:42 Urine Color [place] Urine Appearance Clear (Clear) Urine pH (4.5-7.5) Ur Specific [place] > 1.060 H (1.000-1.060) Urine Protein Negative (Negative) Urine Glucose (UA) (Negative) Diagnostic Findings Microbiology 08/15/18 Unknown Cerebral Spinal Fluid Gram Stain - Final 08/15/18 Unknown Cerebral Spinal Fluid Cryptococcal Antigen - Final
[2018-08-15] MEDS: VANCOMYCIN HCL 1,000 MG in SODIUM CHLORIDE 0.9% 250 ML IV SCH (18:27)
[2018-08-15] MEDS ORDERED: Nursing to Pharmacy Communication ONE (19:00)
[2018-08-15] MEDS: cefTRIAXone SODIUM 2,000 MG in DEXTROSE 5% 50 ML IV SCH (20:39)
[2018-08-16] MEDS ORDERED: IBUPROFEN 200 MG TAB PO PRN (02:18)
[2018-08-16] MEDS: AMPICILLIN 2,000 MG in SODIUM CHLOR 0.9% AD-VAN 100 ML IV SCH ×6 (02:18→23:26)
[2018-08-16] MEDS: ACETAMINOPHEN 325 MG TAB PO PRN ×2 (02:43→17:20)
[2018-08-16] MEDS: VANCOMYCIN HCL 1,000 MG in SODIUM CHLORIDE 0.9% 250 ML IV SCH ×2 (02:48→10:50)
[2018-08-16] MEDS: DEXTROSE 5% IV SCH ×3 (05:00→20:28)
[2018-08-16] MEDS: SODIUM CHLORIDE 0.9% 1000ML 1,000 ML IV SCH (05:00)
[2018-08-16] MEDS: ACYCLOVIR SOD IV SCH ×3 (05:00→20:28)
[2018-08-16] MEDS: cefTRIAXone SODIUM 2,000 MG in DEXTROSE 5% 50 ML IV SCH ×2 (07:33→20:28)
[2018-08-16] MEDS: CEROVITE ADV FORMULA TAB PO SCH ×2 (07:34→22:03)
[2018-08-16] MEDS: CALCIUM CARBONATE 1250MG TAB PO SCH (07:34)
--- NOTE | 2018-08-16 09:20 | Hospitalist Progress Note ---
Date of Service August 16, 2018 Assessment & Plan (1) Fever: Fever Urinary tract infection Acute Meningitis -max temperature to date as 39.9 celsius which is 103.8 F while on ceftriaxone in the hospital on 08/15/18 -patient had recently been treated as outpatient for urinary tract infection: previous use of bactrim for 3 days but then went to ER for right flank pain -08/14/18 CT abdomen/pelvis does not show acute pyelonephritis, Bilateral renal calculi measure up to 5 mm but no ureteral calculi and no hydronephrosis or hydroureter, and patient was discharged from ED with Levaquin but returned the same day for persistent symptoms and fever and also reports associated neck pain and photophobia -patient is immunosuppressed by hydroxychloroquine (Plaquenil) and mycophenolate (Cellcept) because of Systemic lupus erythematosus and Raynaud's syndrome - will hold immunosuppressants for now -patient also had history of suspected meningitis infection in the past but patient never had lumbar puncture before -s/p lumbar puncture by ICU Dr. Schmidt on 08/15/18 and on increased ceftriaxone 2 gram IV q 12 hours , ampicillin 2 gram q4 hours, and vancomycin with lumbar puncture results shoring elevated CSF WBC 366 and elevated CSF total protein 97.4 and therefor confirming acute meningitis. Patient also started on acyclovir on 08/15/18 and Infectious disease doctor consulted -08/16/18:will continue IV antibiotics and acyclovir and await Infectious disease consult on antibiotic and anti-vial recommendations and will continue drop let precautions for now Other labs 08/15/18 CSF No Cryptococcal Antigen Detected; AFB Smear Results: No Acid-Fast Bacilli Seen; CSF culture pending; CSF fungal culture pending; CSF Lyme and CSF VDRL pending; CSF CMV and CSF HSV pending, CSF lyme pending 08/14/18 blood cultures no growth to date; 08/15/18 blood cultures pending results 08/14/18 urine culture pin point growth 08/15/18: HIV screening is negative, negative, monospot negative, EBV panel pending, of Neisseria gonorrhoeae pending Bilateral renal calculi measure up to 5 mm but no ureteral calculi and no hydronephrosis or hydroureter -observation Systemic lupus erythematosus and Raynaud's syndrome -hold hydroxychloroquine (Plaquenil) and mycophenolate (Cellcept) for now - check for SLE studies: ESR is 17, CRP is 9 - C3, C4 levels requested but these are send out labs and will need time to be processed Deep venous thrombosis prophylaxis, SCDs Full Code Mother: [phone] Subjective Patient seen and examined with her mother at bedside. Patient gave permission for physician to discuss her health with her mother in the room and during the physical exam. Patient reports neck pain somewhat better and able to tolerate the lights on during the physical exam. No acute headaches. Patient denies vomiting. reports she is able to urinate and make bowel movements. no abdomen pain. no chest pain. no shortness of breath Physical Exam Constitutional: + ill appearing Eyes: PERRL, conjunctivae normal, anicteric sclerae EOM intact bilaterally ENMT: external ear and nose normal, oropharynx normal some facial puffiness Neck: trachea midline, no thyromegaly (no neck rigidity) normal visual inspection Respiratory: normal respiratory effort, lungs clear to auscultation Cardiovascular: Rate/Rhythm: regular rate and regular rhythm Gastrointestinal (Abdomen): normal bowel sounds, soft, nontender, no hepatosplenomegaly Musculoskeletal: no cyanosis or clubbing, extremities motor strength 5/5 Head/Neck/Chest: normocephalic and head atraumatic Neurologic: PERRL, EOMI, accommodation nl, no face palsy, no dysarthria CN's II-XI intact bilaterally Psychiatric: A+Ox3, euthymic affect Results & Data Vital Signs (Past 12 Hours) Vital Signs Temp Pulse Resp BP Pulse Ox 08/16/18 07:03 37 C 83 16 107/70 95 08/16/18 04:11 37.5 C 91 H 16 108/69 95 08/15/18 23:21 37 C 81 16 104/66 95
[2018-08-16] MEDS ORDERED: VANCOMYCIN TROUGH ONE (09:30)
[2018-08-16 09:58] LABS: Eosinophils % (auto) 1.9 %; Hematocrit (blood only) 34.7 % (37-47); Hemoglobin 11.2 g/dL (12.0-16.0); Immature Granulocytes # (auto) 0.01 K/uL (0.00-0.02); Immature Granulocytes % (auto) 0.2 %; Lymphocytes # (auto) 1.01 K/uL (1.2-3.4); Lymphocytes % (auto) 19.1 %; Mean Corpuscular Hgb Conc 32.3 g/dL (32-36); Mean Corpuscular Volume 89.9 fL (80-100); Mean Platelet Volume 9.1 fL (7.4-10.4); Monocytes # (auto) 0.37 K/uL (0.11-0.59); Neutrophils # (auto) 3.79 K/uL (1.4-6.5); Neutrophils % (auto) 71.8 %; Platelet Count 191 K/uL (130-400); RDW Coefficient of Variation 13.7 % (11.5-14.5); RDW Standard Deviation 45.2 fL (36.4-46.3); Red Blood Count 3.86 M/uL (4.2-5.4); White Blood Count 5.28 K/uL (4.8-10.8)
[2018-08-16 10:27] LABS: Creatinine Clr Calc Pharmacy 165.2 ml/min; Est GFR (African American) > 150.0; Est GFR (Non-African American) 137.4
[2018-08-16] MEDS: OXYCODONE HCL IR 5 MG TAB (IMMEDIATE RELEASE) PO PRN (10:50)
--- NOTE | 2018-08-16 11:05 | Pharmacy Report ---
Pharmacy Abx Dose Short Note - Date of Service August 16, 2018 - Assessment & Plan Assessment 23 year old F receiving vancomycin for meningitis concern Day # 2 of antimicrobial therapy. Plan Vancomycin * Trough level came back at 11 mcg/ml (goal ~20 for meningitis) -- level drawn before the 3rd maintainenance dose so therefore not quite at steady state with vancomycin dosing, however due to severity of infection want to be more aggressive with dosing * Will increase to 1250 mg (~19 mg/kg) iv q 8 hrs to target higher trough level of ~20 mcg/ml - will start dosing at 1800 tonight as 10am dose this morning given around 11 * Renal function remains stable, Crcl remains >120 ml/min * Awaiting cultures at this time - will reorder trough tomorrow evening if vancomycin still continued Pharmacy will continue to follow and will adjust dose/frequency as necessary. Thank you.
[2018-08-16] MEDS ORDERED: HYDROmorphone INJ 0.5 MG/0.5 ML SYR IV STA (12:25)
--- NOTE | 2018-08-16 15:18 | Infectious Disease Progress Nt ---
Date of Service August 16, 2018 Assessment & Plan (1) Meningitis: 23-year-old female with lupus now with fever, headache, new urinary complaints with CSF consistent with acute meningitis. Differential includes usual bacterial causes including listeria given her immunocompromise status, suspect more likely viral such as echovirus but also HSV possible. Also wonder whether her underlying lupus may be contributing. For now, patient will continue on current broad-spectrum antibiotics and antiviral therapy pending final culture results, PCR studies and serologies. Discussed at length with patient and patient's father and mother. Will follow. Subjective Patient seen in follow-up for meningitis. Had severe headache this morning, better after Dilaudid. Currently afebrile. All cultures remain negative to date. Some sinus congestion and sore throat today. Review of Systems Review of Systems: All systems reviewed & are unremarkable except as noted in HPI & below Physical Exam Constitutional: WD/WN, vitals as above + ill appearing and comfortable Eyes: PERRL, conjunctivae normal, anicteric sclerae ENMT: external ear and nose normal, oropharynx normal Neck: trachea midline, no thyromegaly neck nontender Respiratory: normal respiratory effort, lungs clear to auscultation normal percussion; does not use accessory muscles Cardiovascular: Rate/Rhythm: regular rate and regular rhythm Heart Sounds: normal S1 and normal S2; no gallop, no murmur and no cardiac rub Vessels: normal peripheral pulses; no JVD Gastrointestinal (Abdomen): normal bowel sounds, soft, nontender, no hepatosplenomegaly Musculoskeletal: no cyanosis or clubbing, extremities motor strength 5/5 Spine: thoracic spine normal to inspection and lumbar spine normal to inspection; no cervical spinal tenderness Skin: no rashes, warm and dry normal turgor; no lesions Neurologic: patellar DTR's 2+ bilat, sensation intact no focal motor deficits Psychiatric: A+Ox3, euthymic affect Orientation: cooperative Lymphatic: no cervical or axillary lymphadenopathy no inguinal lymphadenopathy Results & Data Vital Signs (Past 12 Hours) Vital Signs Temp Pulse Resp BP Pulse Ox 08/16/18 07:03 37 C 83 16 107/70 95 08/16/18 04:11 37.5 C 91 H 16 108/69 95 Laboratory Results Short CBC 08/16/18 Range/Units 09:40 WBC 5.28 (4.8-10.8) K/uL Hgb 11.2 L (12.0-16.0) g/dL Hct 34.7 L (37-47) % Plt Count 191 (130-400) K/uL BMP 08/16/18 09:40 Creatinine 0.50 L Diagnostic Findings Microbiology 08/15/18 Unknown Cerebral Spinal Fluid Gram Stain - Final 08/15/18 Unknown Cerebral Spinal Fluid CSF Culture - Preliminary No growth to date. 08/15/18 Unknown Cerebral Spinal Fluid Acid Fast Bacilli Smear - Final 08/15/18 Unknown Cerebral Spinal Fluid Cryptococcal Antigen - Final
[2018-08-16] MEDS: VANCOMYCIN HCL 1,250 MG in SODIUM CHLORIDE 0.9% 250 ML IV SCH (17:22)
[2018-08-16] MEDS ORDERED: HYDROmorphone INJ 0.5 MG/0.5 ML SYR IV PRN (17:34)
[2018-08-16] MEDS ORDERED: OXYCODONE HCL IR 5 MG TAB (IMMEDIATE RELEASE) PO PRN (17:34)
[2018-08-17] MEDS: VANCOMYCIN HCL 1,250 MG in SODIUM CHLORIDE 0.9% 250 ML IV SCH ×2 (01:00→09:59)
[2018-08-17] MEDS: AMPICILLIN 2,000 MG in SODIUM CHLOR 0.9% AD-VAN 100 ML IV SCH ×3 (03:09→09:29)
[2018-08-17] MEDS: ACYCLOVIR SOD IV SCH ×2 (03:41→12:16)
[2018-08-17] MEDS: DEXTROSE 5% IV SCH ×2 (03:41→12:16)
[2018-08-17] MEDS: cefTRIAXone SODIUM 2,000 MG in DEXTROSE 5% 50 ML IV SCH (06:17)
[2018-08-17] MEDS: CEROVITE ADV FORMULA TAB PO SCH (07:28)
[2018-08-17] MEDS: CALCIUM CARBONATE 1250MG TAB PO SCH (07:28)
[2018-08-17 09:34] LABS: Basophils # (auto) 0.01 K/uL (0-0.2); Basophils % (auto) 0.2 %; Eosinophils # (auto) 0.12 K/uL (0-0.5); Eosinophils % (auto) 2.8 %; Hematocrit (blood only) 34.9 % (37-47); Hemoglobin 11.4 g/dL (12.0-16.0); Lymphocytes # (auto) 0.57 K/uL (1.2-3.4); Lymphocytes % (auto) 13.1 %; Mean Corpuscular Hgb Conc 32.7 g/dL (32-36); Mean Corpuscular Volume 88.4 fL (80-100); Mean Platelet Volume 9.1 fL (7.4-10.4); Monocytes # (auto) 0.29 K/uL (0.11-0.59); Monocytes % (auto) 6.7 %; Neutrophils # (auto) 3.36 K/uL (1.4-6.5); Neutrophils % (auto) 77.2 %; Platelet Count 201 K/uL (130-400); RDW Coefficient of Variation 13.1 % (11.5-14.5); RDW Standard Deviation 42.6 fL (36.4-46.3); Red Blood Count 3.95 M/uL (4.2-5.4); White Blood Count 4.35 K/uL (4.8-10.8)
[2018-08-17 10:17] LABS: Alanine Aminotransferase 15 U/L (12-78); Albumin Globulin Ratio 0.6 (0.9-2); Albumin Level 2.7 gm/dl (3.4-5.0); Alkaline Phosphatase 54 U/L (45-117); Aspartate Aminotransferase 17 U/L (15-37); BUN Creatinine Ratio 7.3 (10-20); Bilirubin,Total 0.2 mg/dl (0.2-1); Blood Urea Nitrogen 4 mg/dl (7-18); Calcium 8.4 mg/dl (8.5-10.1); Carbon Dioxide 31 mmol/L (21-32); Chloride 107 mmol/L (98-107); Est GFR (African American) > 150.0; Est GFR (Non-African American) 136.5; Globulin 4.2 gm/dl (2.5-4.0); Glucose 105 mg/dl (70-99); Potassium 3.2 mmol/L (3.5-5.1); Sodium 142 mmol/L (136-145); Total Protein 6.9 gm/dl (6.4-8.2)
--- NOTE | 2018-08-17 11:28 | Infectious Disease Progress Nt ---
Date of Service August 17, 2018 Assessment & Plan (1) Meningitis: 23-year-old female with lupus now with fever, headache, new urinary complaints with CSF consistent with acute meningitis. Differential includes usual bacterial causes including listeria given her immunocompromise status, suspect more likely viral such as echovirus but also HSV possible. Also wonder whether her underlying lupus may be contributing. Given negative blood and CSF cultures, think that IV antibiotics can be safely discontinued. Would recommend continuing patient on oral Valtrex pending HSV studies. See no contraindication to discharge from ID standpoint. Case discussed with hospitalist. Subjective Patient seen in follow-up for meningitis. Significantly better this morning, less headache, no significant neck stiffness. Remains afebrile. All cultures r emain negative. No new complaints. Review of Systems Review of Systems: All systems reviewed & are unremarkable except as noted in HPI & below Physical Exam Constitutional: WD/WN, vitals as above + ill appearing and comfortable Eyes: PERRL, conjunctivae normal, anicteric sclerae ENMT: external ear and nose normal, oropharynx normal Neck: trachea midline, no thyromegaly neck nontender Respiratory: normal respiratory effort, lungs clear to auscultation normal percussion; does not use accessory muscles Cardiovascular: Rate/Rhythm: regular rate and regular rhythm Heart Sounds: normal S1 and normal S2; no gallop, no murmur and no cardiac rub Vessels: normal peripheral pulses; no JVD Gastrointestinal (Abdomen): normal bowel sounds, soft, nontender, no hepatosplenomegaly Musculoskeletal: no cyanosis or clubbing, extremities motor strength 5/5 Spine: thoracic spine normal to inspection and lumbar spine normal to inspection; no cervical spinal tenderness Skin: no rashes, warm and dry normal turgor; no lesions Neurologic: patellar DTR's 2+ bilat, sensation intact no focal motor deficits Psychiatric: A+Ox3, euthymic affect Orientation: cooperative Lymphatic: no cervical or axillary lymphadenopathy no inguinal lymphadenopathy Results & Data Vital Signs (Past 12 Hours) Vital Signs Temp Pulse Resp BP Pulse Ox 08/16/18 23:29 36.5 C 78 20 99/64 L 98 Laboratory Results Short CBC 08/17/18 Range/Units 09:22 WBC 4.35 L (4.8-10.8) K/uL Hgb 11.4 L (12.0-16.0) g/dL Hct 34.9 L (37-47) % Plt Count 201 (130-400) K/uL BMP 08/17/18 09:22 Sodium 142 Potassium 3.2 L Chloride 107 Carbon Dioxide 31 BUN 4 L Creatinine 0.51 L Glucose 105 H Calcium 8.4 L Liver Function 08/17/18 Range/Units 09:22 Total Bilirubin 0.2 (0.2-1) mg/dl AST 17 (15-37) U/L ALT 15 (12-78) U/L Alkaline Phosphatase 54 (45-117) U/L Albumin 2.7 L (3.4-5.0) gm/dl Diagnostic Findings Microbiology 08/15/18 Unknown Cerebral Spinal Fluid Gram Stain - Final 08/15/18 Unknown Cerebral Spinal Fluid CSF Culture - Final No growth 08/15/18 10:36 Blood Blood Culture - Preliminary No growth to date. 08/15/18 10:02 Blood Blood Culture - Preliminary No growth to date. 08/15/18 Unknown Cerebral Spinal Fluid Acid Fast Bacilli Smear - Final 08/15/18 Unknown Cerebral Spinal Fluid Cryptococcal Antigen - Final
[2018-08-17] MEDS ORDERED: VALACYCLOVIR HCL 500 MG TABLET PO SCH ×2 (12:30)
--- NOTE | 2018-08-17 12:31 | Hospitalist Progress Note ---
Date of Service August 17, 2018 Assessment & Plan (1) Fever: Fever Urinary tract infection Acute Meningitis -max temperature to date as 39.9 celsius which is 103.8 F while on ceftriaxone in the hospital on 08/15/18 -patient had recently been treated as outpatient for urinary tract infection: previous use of bactrim for 3 days but then went to ER for right flank pain -08/14/18 CT abdomen/pelvis does not show acute pyelonephritis, Bilateral renal calculi measure up to 5 mm but no ureteral calculi and no hydronephrosis or hydroureter, and patient was discharged from ED with Levaquin but returned the same day for persistent symptoms and fever and also reports associated neck pain and photophobia -patient is immunosuppressed by hydroxychloroquine (Plaquenil) and mycophenolate (Cellcept) because of Systemic lupus erythematosus and Raynaud's syndrome - will hold immunosuppressants for now -patient also had history of suspected meningitis infection in the past but patient never had lumbar puncture before -s/p lumbar puncture by ICU Dr. Schmidt on 08/15/18 and on increased ceftriaxone 2 gram IV q 12 hours , ampicillin 2 gram q4 hours, and vancomycin with lumbar puncture results shoring elevated CSF WBC 366 and elevated CSF total protein 97.4 and therefor confirming acute meningitis. Patient also started on acyclovir on 08/15/18 and Infectious disease doctor consulted -08/16/18:will continue IV antibiotics and acyclovir and await Infectious disease consult on antibiotic and anti-vial recommendations and will continue drop let precautions for now Other labs 08/15/18 CSF No Cryptococcal Antigen Detected; AFB Smear Results: No Acid-Fast Bacilli Seen; CSF culture no growth; CSF fungal culture pending; CSF Lyme and CSF VDRL pending; CSF CMV and CSF HSV pending, CSF lyme pending 08/14/18 blood cultures no growth to date; 08/15/18 blood cultures pending results 08/14/18 urine culture pin point growth 08/15/18: HIV screening is negative, negative, monospot negative, EBV panel pending, of Neisseria gonorrhoeae pending 08/16/18: Discharge to home; There are studies which have suggested valacyclovir orally administered at 1,000 mg three times daily for 21 days in patients with herpes encephalitis ; Given that patient is recommended by infectious disease doctor dr. Onel Son to be discharged from hospital on 08/17/18 and on recommendation of on oral Valtrex (valacyclovir) pending HSV studies, this should be discharging dose of valacyclovir for now until patient can follow up with primary care doctor and await the HSV study results Bilateral renal calculi measure up to 5 mm but no ureteral calculi and no hydronephrosis or hydroureter -observation Systemic lupus erythematosus and Raynaud's syndrome -hold hydroxychloroquine (Plaquenil) and mycophenolate (Cellcept) for now - check for SLE studies: ESR is 17, CRP is 9 - C3, C4 levels pending as these are send out labs and will need time to be processed Deep venous thrombosis prophylaxis, SCDs Full Code Mother: [phone] Discharge Diagnosis Fever, Urinary tract infection, Acute Meningitis, Bilateral renal calculi me asure up to 5 mm but no ureteral calculi and no hydronephrosis or hydroureter, Systemic lupus erythematosus and Raynaud's syndrome Disposition: patient is discharged to home with oral valacyclovir as recommended by infectious disease doctor and because patient is clinically improved and patient would like to have primary care doctor in her home state [facility] to follow the results of the pending labs including the HSV tests Subjective Patient looks much better today. more active and alert and ambulatory. Patient denies vomiting. headache and neck pain appears resolved. no chest pain. no shortness of breath. Physical Exam Constitutional: WD/WN, vitals as above Eyes: PERRL, conjunctivae normal, anicteric sclerae EOM intact bilaterally ENMT: external ear and nose normal, oropharynx normal Neck: trachea midline, no thyromegaly (no neck rigidity) normal visual inspection Respiratory: normal respiratory effort, lungs clear to auscultation Cardiovascular: Rate/Rhythm: regular rate and regular rhythm Gastrointestinal (Abdomen): normal bowel sounds, soft, nontender, no hepatosplenomegaly Musculoskeletal: no cyanosis or clubbing, extremities motor strength 5/5 Head/Neck/Chest: normocephalic and head atraumatic Neurologic: PERRL, EOMI, accommodation nl, no face palsy, no dysarthria CN's II-XI intact bilaterally Psychiatric: A+Ox3, euthymic affect Results & Data Vital Signs (Past 12 Hours) Vital Signs Temp Pulse Resp BP BP Pulse Ox 08/17/18 12:24 36.5 C 78 20 99/64 L 101/65 98
--- NOTE | 2018-08-17 12:39 | Discharge Summary ---
Date of Service August 17, 2018 Admission HPI Per Admitting Provider DATE OF ADMISSION: 08/15/2018 CHIEF COMPLAINT: Fever, not feeling well, flank pain. HISTORY OF PRESENT ILLNESS: This is a 23-year-old female with past medical history significant for Raynaud's syndrome, SLE, who recently was diagnosed with UTI at [facility] and treated with 3 days of Bactrim. Then she did have joint pain, so she spoke with her semiconductor dies loader who prescribed a Medrol Dosepak for 6 days, which she completed, but again she also had cold symptoms when she had UTI and the cold symptoms never went away and she went to [facility] yesterday morning and was referred to ED. [facility] performed strep swab and flu swab and they were both negative. She complained of right flank pain in the ER yesterday afternoon, white count was 11. All chemistries were fine. Lactic acid was 1.5. UA was negative. She was given Rocephin and Levaquin. Chest x-ray was unremarkable and CT of abdomen and pelvis with contrast was also unremarkable except for some constipation, so she was discharged on p.o. Levaquin as per patient wishes as she was graduating from [employer].. After graduation, around 8 o'clock, she started not feeling well and complained of flank pain and came back to the ER. She has lupus and is on immunosupressant medications. Again the chemistries were fine and lactic acid was 1.3. Urinalysis negative,.Blood pressure was on the lower side, received IV fluids, and received Tylenol and also Toradol, and we are called for admission for observation in the hospital. The patient says now she is feeling better. She has history of meningococcal bacteremia in the past. She complains of mild headache and mild neck pain but no neck stiffness. No chest pain, no shortness of breath, currently no cough, no nausea, no abdominal pain. Normal bowel and bladder movements. No burning micturition, no hematuria. Her flank pain is improved. No swelling in the legs. No rash seen. Currently resting comfortably. She is feeling better. Mother in the room and she is asking to check for SLE studies, likely ESR, CRP, C3, C4 levels and she is questioning holding the CellCept while she is in the hospital. ALLERGIES: No known drug allergies. PAST MEDICAL HISTORY: As mentioned above. PAST SURGICAL HISTORY: None. MEDICATIONS: The patient is on multivitamins with minerals 1 tablet daily, Plaquenil 400 mg p.o. b.i.d., CellCept 1000 mg p.o. b.i.d. FAMILY HISTORY: Significant for mother has ITP and stroke. Paternal grandmother had MS . SOCIAL HISTORY: Single. No smoking; alcohol rarely. No drug use. REVIEW OF SYMPTOMS: As per HPI. Rest of review of systems is negative. Admission Exam Per Admitting Provider PHYSICAL EXAMINATION: GENERAL: The patient is of moderate build, not in acute distress. VITAL SIGNS: Temperature 37.7, pulse 102, respiratory rate 18, blood pressure 88/38, oxygen 97% on room air. HEENT: Pupils equal, round, reactive to light. Atraumatic. NECK: No neck masses. Supple. CARDIOVASCULAR: S1, S2 heard. Regular rate and rhythm, no murmur, no gallop. RESPIRATORY SYSTEM: Normal effort. No accessory muscle use. No wheezing, no crackles. ABDOMEN: Soft, bowel sounds present. Nontender. No distention. CENTRAL NERVOUS SYSTEM: Nonfocal. EXTREMITIES: No edema, no erythema. Principal Diagnosis Fever, Urinary tract infection, Acute Meningitis, Bilateral renal calculi measure up to 5 mm but no ureteral calculi and no hydronephrosis or hydroureter, Systemic lupus erythematosus and Raynaud's syndrome Discharge Exam Constitutional WD/WN, vitals as above Eyes PERRL, conjunctivae normal, anicteric sclerae EOM intact bilaterally ENMT external ear and nose normal, oropharynx normal Neck trachea midline, no thyromegaly (no neck rigidity) normal visual inspection Respiratory normal respiratory effort, lungs clear to auscultation Cardiovascular Rate/Rhythm: regular rate and regular rhythm Gastrointestinal (Abdomen) normal bowel sounds, soft, nontender, no hepatosplenomegaly Musculoskeletal no cyanosis or clubbing, extremities motor strength 5/5 Head/Neck/Chest: normocephalic and head atraumatic Neurologic PERRL, EOMI, accommodation nl, no face palsy, no dysarthria CN's II-XI intact bilaterally Psychiatric A+Ox3, euthymic affect Discharge Data Allergies Allergy/AdvReac Type Severity Reaction Status Date / Time No Known Allergies Allergy Verified 08/14/18 23:19 Consultations 08/15/18 01:22 ED Decision to Admit Stat 08/15/18 08:41 Consult Yolk Spray Drier Routine 08/15/18 08:50 Consult Infectious Diseases Routine Hospital Course (1) Fever: Fever Urinary tract infection Acute Meningitis -max temperature to date as 39.9 celsius which is 103.8 F while on ceftriaxone in the hospital on 08/15/18 -patient had recently been treated as outpatient for urinary tract infection: previous use of bactrim for 3 days but then went to ER for right flank pain -08/14/18 CT abdomen/pelvis does not show acute pyelonephritis, Bilateral renal calculi measure up to 5 mm but no ureteral calculi and no hydronephrosis or hydroureter, and patient was discharged from ED with Levaquin but returned the same day for persistent symptoms and fever and also reports associated neck pain and photophobia -patient is immunosuppressed by hydroxychloroquine (Plaquenil) and mycophenolate (Cellcept) because of Systemic lupus erythematosus and Raynaud's syndrome - will hold immunosuppressants for now -patient also had history of suspected meningitis infection in the past but patient never had lumbar puncture before -s/p lumbar puncture by ICU Dr. Schmidt on 08/15/18 and on increased ceftriaxone 2 gram IV q 12 hours , ampicillin 2 gram q4 hours, and vancomycin with lumbar puncture results shoring elevated CSF WBC 366 and elevated CSF total protein 97.4 and therefor confirming acute meningitis. Patient also started on acyclovir on 08/15/18 and Infectious disease doctor consulted -08/16/18:will continue IV antibiotics and acyclovir and await Infectious disease consult on antibiotic and anti-vial recommendations and will continue drop let precautions for now Other labs 08/15/18 CSF No Cryptococcal Antigen Detected; AFB Smear Results: No Acid-Fast Bacilli Seen; CSF culture no growth; CSF fungal culture pending; CSF Lyme and CSF VDRL pending; CSF CMV and CSF HSV pending, CSF lyme pending 08/14/18 blood cultures no growth to date; 08/15/18 blood cultures pending results 08/14/18 urine culture pin point growth 08/15/18: HIV screening is negative, negative, monospot negative, EBV panel pending, of Neisseria gonorrhoeae pending 08/16/18: Discharge to home; There are studies which have suggested valacyclovir orally administered at 1,000 mg three times daily for 21 days in patients with herpes encephalitis ; Given that patient is recommended by infectious disease doctor dr. Onel Son to be discharged from hospital on 08/17/18 and on recommendation of on oral Valtrex (valacyclovir) pending HSV studies, this should be discharging dose of valacyclovir for now until patient can follow up with primary care doctor and await the HSV study results Bilateral renal calculi measure up to 5 mm but no ureteral calculi and no hydronephrosis or hydroureter -observation Systemic lupus erythematosus and Raynaud's syndrome -hold hydroxychloroquine (Plaquenil) and mycophenolate (Cellcept) for now - check for SLE studies: ESR is 17, CRP is 9 - C3, C4 levels pending as these are send out labs and will need time to be processed Deep venous thrombosis prophylaxis, SCDs Full Code Mother: [phone] Discharge Diagnosis Fever, Urinary tract infection, Acute Meningitis, Bilateral renal calculi measure up to 5 mm but no ureteral calculi and no hydronephrosis or hydroureter, Systemic lupus erythematosus and Raynaud's syndrome Disposition: patient is discharged to home with oral valacyclovir as recommended by infectious disease doctor and because patient is clinically improved and patient would like to have primary care doctor in her home state of [place] to follow the results of the pending labs including the HSV tests Total Time Total Time Spent Total Time Spent (In Minutes): 40 minutes Total Time Includes: Examination of the Patient, Discharge Planning, Medication Reconciliation and Communication With Other Providers Discharge Plan Discharge Items Patient Disposition: Home - Self-Care Reason For Visit: FLANK PAIN Discharge Diagnosis: Fever, Urinary tract infection, Acute Meningitis, Bilateral renal calculi measure up to 5 mm but no ureteral calculi and no hydronephrosis or hydroureter, Systemic lupus erythematosus and Raynaud's syndrome Condition: Good Discharge Goals: Improve disease control Activity: Resume your previous activity Non-emergency contact: Primary Care Provider Call non-emergency contact if: you have any medication questions Follow-up/Referrals: Meghan Salinas NP [Primary Care Provider] - Diet: Regular Addtl Provider Instructions: Discharge to home Patient was diagnosed with acute meningitis based on lumbar puncture results on 08/15/18 and was empirically started on treatment with ceftriaxone 2 gram IV q 12 hours , ampicillin 2 gram q4 hours, and vancomycin, and acyclovir There are studies which have suggested valacyclovir orally administered at 1,000 mg three times daily for 21 days in patients with herpes encephalitis Given that patient is recommended by infectious disease doctor dr. Onel Son to be discharged from hospital on 08/17/18 and on recommendation of on oral Valtrex (valacyclovir) pending HSV studies, this should be discharging dose of valacyclovir for now until patient can follow up with primary care doctor and await the HSV study results Prescriptions: New valacyclovir 1 gram tablet 1,000 mg PO TID 21 Days Qty: 63 RF: 0 Continued hydroxychloroquine [Plaquenil] 200 mg Tablet 200 mg PO DAILY Qty: 0 RF: 0 phenazopyridine [Pyridium] 200 mg tablet 200 mg PO DAILY PRN (Reason: UTI irritation) RF: 0 calcium carbonate [Calcium 500] 500 mg calcium (1,250 mg) Tablet 500 mg PO DAILY RF: 0 mycophenolate mofetil [CellCept] 250 mg Capsule 500 mg PO BID RF: 0 multivitamin with minerals [Hair,Skin and Nails] Tablet 2 tab PO BID RF: 0 Discontinued sulfamethoxazole-trimethoprim [Bactrim DS] 800-160 mg Tablet 1 tab PO BID RF: 0 levofloxacin [Levaquin] 500 mg tablet 500 mg PO DAILY 7 Days Qty: 7 RF: 0 Stand-Alone Forms: [facility] Discharge Orders: Discharge Order (Routine); Ordered 08/17/18 Ordered By: Shaw Patrick Admission Data Admit Date/Time: 08/15/18 03:15 Attending Provider: Shaw Patrick Admit Provider: Connor Claros Primary Care Provider: Meghan Salinas Other Providers: Connor Claros ; Hao Schmidt ; Onel Son Service: Telemetry Medical Other Interventions: Discharge Summary Assessment (RN) Last Done: 08/17/18 12:24
[2018-08-17 14:51] LABS: Complement C3 83 MG/DL (83-193)
[2018-08-17] MEDS ORDERED: VANCOMYCIN TROUGH ONE (17:30)
[2018-08-18 14:19] LABS: EBV Virus Capsid Ag IgG Ab >750.00 U/ML; Epstein Barr Virus Early Ag Ab >150.00 U/ML
[2018-08-27 09:12] LABS: CMV DNA Qnt Real Time PCR <200 IU/mL (<200); CMV DNA Quant PCR <2.30 log IU/mL (<2.30); EBV DNA Quant PCR <200 copies/mL (<200); EBV DNA Quant Source CSF; HSV Type 1 DNA Not Detected (Not Detected); HSV Type 1&2 DNA Source CSF; HSV Type 2 DNA Not Detected (Not Detected); Lyme IgG CSF NO BANDS DETECTED; Lyme IgM CSF NO BANDS DETECTED; VDRL Qualitative CSF Nonreactive (Nonreactive); VZ DNA Source CSF
== END 2018-08-17 13:23 | disposition home or self-care (01) | DRG 98 ==
LOC: ED 22:10 → 2W 08-15 03:15